=== PATIENT | male | born 1975 ===

== ENCOUNTER 2018-09-22 06:00 | Day surgery (SDC) | payer OTHER ==
[2018-09-22] MEDS ORDERED: TRAMADOL HCL50 MG PO (08:46)
[2018-09-22] MEDS ORDERED: MIRALAX17 GM PO (08:46)
[2018-09-22] MEDS ORDERED: TYLENOL EXTRA500 MG PO (08:46)
[2018-09-22] MEDS ORDERED: ZOFRAN4 MG PO (08:46)
[2018-09-22] MEDS ORDERED: NEURONTIN300 MG PO (08:46)
== END 2018-09-22 11:50 | disposition home or self-care (01) ==
LOC: CIR.AMB 06:00
DX: K43.6 Other and unspecified ventral hernia with obstruction, without gangrene (principal)